=== PATIENT | female | born 1940 | race Caucasian/White ===

== ENCOUNTER 2017-07-27 22:59 | Emergency (ER) | payer MEDICARE, OTHER ==
[~2017-07-27] VITALS: Ht 180.3 cm; Wt 97.5 kg
[2017-07-28] MEDS ORDERED: HYDROcodone-ACET 5/325MG TAB PO ONE (02:30)
[2017-07-28 02:43] VITALS: BP 140/67
== END 2017-07-28 02:58 | disposition home or self-care (01) ==
LOC: EDBD 22:59 → ER 23:05
DX: S01.01XA Laceration without foreign body of scalp, initial encounter (principal); E11.9 Type 2 diabetes mellitus without complications; E78.5 Hyperlipidemia, unspecified; I10 Essential (primary) hypertension; Z88.0 Allergy status to penicillin; W19.XXXA Unspecified fall, initial encounter; Y93.89 Activity, other specified; Y92.89 Other specified places as the place of occurrence of the external cause; Y99.8 Other external cause status
CPT/HCPCS: 12002; 70450